=== PATIENT | male | born 1965 | race African-American/Black ===

== ENCOUNTER 2021-10-30 15:40 | Emergency (ER) | payer SELFPAY ==
[~2021-10-30] VITALS: Ht 193 cm; Wt 158.8 kg
[2021-10-30 16:16] VITALS: BP_SYST 181
--- NOTE | 2021-10-30 16:25 | NUR ---
pt. bib sister in law with draing sore to back, stated first noticed ot on friday had someone squueze it and it has been draining since, area all around red, firm, and warm
[2021-10-30] MEDS ORDERED: VANCOMYCIN HCL 1,000 MG in NS 250 ML IV ONE (17:00)
[2021-10-30] MEDS ORDERED: VANCOMYCIN HCL 1000 MG/VIAL IV ONE (17:26)
[2021-10-30] MEDS ORDERED: LIDOCAINE 1%, 20 ML MDV 20 ML ONE (17:29)
--- NOTE | 2021-10-30 17:30 | NUR ---
Patient to ER bed 8 to gown for evaluation. Side rails up. Report given to Kelli.
--- NOTE | 2021-10-30 18:53 | NUR ---
I&D Procedure done by Dr VIC alvarez using sterile technique. Lidocaine 1% used. Wound packed with IODOFORM. Adaptic, 4x4 and micky to wound. MINIMAL amt of bleeding noted. Wound care discussed w/ patient. Pt tolerated procedure well.
--- NOTE | 2021-10-30 19:33 | NUR ---
report given to Jon GIL
[2021-10-30] MEDS ORDERED: CEPH-548 PO (19:47)
[2021-10-30] MEDS ORDERED: NAPR-1172 PO (19:47)
[2021-10-30 20:14] VITALS: BP_SYST 130
--- NOTE | 2021-10-30 20:16 | NUR ---
Pt DC per MD's order ED instructions and prescription given Pt veralized understandings AOX4 VSS NAD at this time Pt exited ED in stable gait
== END 2021-10-30 20:14 | disposition home or self-care (01) ==
LOC: SED 15:40
DX: L02.212 Cutaneous abscess of back [any part, except buttock and flank] (principal); Z79.899 Other long term (current) drug therapy
CPT/HCPCS: 10060; 36415; 87040; 96365; 99284; J2001; J3370

== ENCOUNTER 2021-11-01 16:41 | Inpatient (IN) | payer SELFPAY ==
[~2021-11-01] VITALS: Ht 193 cm; Wt 158.8 kg
[~2021-11-01 16:41] MED LIST: CEPH-548 PO; NAPR-1172 PO
[2021-11-01 16:50] VITALS: BP_SYST 177
[2021-11-01] MEDS ORDERED: VANCOMYCIN HCL 1,000 MG in D5W 250 ML IV ONE (17:45)
[2021-11-01] MEDS ORDERED: KETOROLAC TROMETHAMINE 30 MG VIAL IVP ONE (17:45)
[2021-11-01] MEDS ORDERED: PIPERACILLIN/TAZO 3.38 GM in D5W 50 ML IV ONE (17:45)
[2021-11-01 18:24] LABS: BASOPHILS # (AUTO) 0.1 K/uL (0.0-0.2); HEMOGLOBIN 11.8 g/dL (14.0-18.0); MEAN CORPUSCULAR VOLUME 76 fL (79.0-98.0); RED CELL DISTRIBUTION WIDTH 16.7 % (9.0-15.0)
[2021-11-01] MEDS ORDERED: PIPERACILLIN/TAZOBACTAM 3.375 GM/VIAL (ZOSYN) IV ONE (18:27)
[2021-11-01] MEDS ORDERED: VANCOMYCIN HCL 1000 MG/VIAL IV ONE (18:28)
[2021-11-01 18:40] LABS: CREATININE 2.98 mg/dL (0.55-1.30)
[2021-11-01 18:49] LABS: POTASSIUM 2.9 mmol/L (3.5-5.1)
[2021-11-01 19:00] LABS: BASOPHILS % (AUTO) 0.4 % (0.0-2.0); EOSINOPHILS # (AUTO) 0.7 K/uL (0.0-0.4); EOSINOPHILS % (AUTO) 4.7 % (0.0-4.0); HEMATOCRIT 35.8 % (36-54); LYMPHOCYTES % (AUTO) 6.6 % (20.5-51.5); MEAN CORPUSCULAR HEMOGLOBIN 25 pg (27-31); MEAN CORPUSCULAR HGB CONC 33 % (32-36); MONOCYTES # (AUTO) 1.3 K/uL (0.0-1.0); MONOCYTES % (AUTO) 8.3 % (1.7-9.3); NEUTROPHILS # (AUTO) 12.2 K/uL (1.8-7.7); PLATELET COUNT (AUTO) 279 K/uL (130-430); RED BLOOD CELL COUNT(AUTO) 4.68 MIL/uL (4.2-6.2); WHITE BLOOD COUNT (AUTO) 15.2 K/uL (4.8-10.8)
[2021-11-01] MEDS ORDERED: NACL 0.9% 1,000 ML IV ONE (19:00)
[2021-11-01] MEDS ORDERED: D5/0.45 NS 1,000 ML IV SCH (19:45)
[2021-11-01] MEDS ORDERED: HYDROcodone/ACETAMIN 5-325 MG TAB (NORCO/ VICODIN) PO PRN (20:15)
[2021-11-01] MEDS ORDERED: HYDROcodone/ACETAMIN 10-325 MG TAB PO PRN (20:15)
[2021-11-01] MEDS ORDERED: ACETAMINOPHEN 325 MG TABLET PO PRN (20:15)
[2021-11-01] MEDS ORDERED: LORazepam 2 MG/ML VIAL IVP PRN (20:15)
[2021-11-01] MEDS ORDERED: INSULIN REGULAR, HUMAN 100 UNITS/ML, 10 ML VIAL (humuLIN R) SUBCUT PRN (20:15)
[2021-11-01] MEDS ORDERED: ONDANSETRON HCL 4 MG/2 ML VIAL IVP PRN (20:15)
[2021-11-01 21:44] VITALS: BP_SYST 177
[2021-11-02] MEDS ORDERED: PIPERACILLIN/TAZO 3.375 GM in NS 50 ML IV ONE ×2
== END 2021-11-01 21:44 | disposition left against medical advice (07) | DRG 603 ==
LOC: SED 16:41 → SMU 19:35
PROVIDERS: ADMIT Preventive Medicine Preventive Medicine/Occupational Environmental Medicine; ATTEND Preventive Medicine Preventive Medicine/Occupational Environmental Medicine
DX: L02.212 Cutaneous abscess of back [any part, except buttock and flank] (principal); N17.9 Acute kidney failure, unspecified; E11.9 Type 2 diabetes mellitus without complications; Z53.29 Procedure and treatment not carried out because of patient's decision for other reasons
CPT/HCPCS: 36415; 80048; 85025; J1815; J1885; J2543; J3370

== ENCOUNTER 2021-11-04 08:55 | Emergency (ER) | payer SELFPAY ==
[~2021-11-04] VITALS: Ht 193 cm; Wt 158.8 kg
[2021-11-04 08:55] VITALS: BP_SYST 208
--- NOTE | 2021-11-04 08:55 | NUR ---
Patient to ER bed 7 to gown for evaluation. Report given to Shayla.
--- NOTE | 2021-11-04 08:58 | NUR ---
ER at bedside examining patient, dressing removed, pressure applied to wound to assist with drainage
--- NOTE | 2021-11-04 10:28 | NUR ---
lab collected, wound pack completed copious serous drainage.
[2021-11-04 10:39] LABS: BASOPHILS # (AUTO) 0.1 K/uL (0.0-0.2); EOSINOPHILS # (AUTO) 0.5 K/uL (0.0-0.4); EOSINOPHILS % (AUTO) 5.3 % (0.0-4.0); HEMATOCRIT 34.7 % (36-54); HEMOGLOBIN 11.5 g/dL (14.0-18.0); LYMPHOCYTES # (AUTO) 1.1 K/uL (1.0-5.5); MEAN CORPUSCULAR HEMOGLOBIN 25 pg (27-31); MEAN CORPUSCULAR HGB CONC 33 % (32-36); MEAN CORPUSCULAR VOLUME 77 fL (79.0-98.0); MONOCYTES # (AUTO) 0.8 K/uL (0.0-1.0); MONOCYTES % (AUTO) 7.8 % (1.7-9.3); NEUTROPHILS # (AUTO) 7.8 K/uL (1.8-7.7); NEUTROPHILS % (AUTO) 74.9 % (40.0-70.0); PLATELET COUNT (AUTO) 256 K/uL (130-430); RED BLOOD CELL COUNT(AUTO) 4.52 MIL/uL (4.2-6.2); RED CELL DISTRIBUTION WIDTH 17.2 % (9.0-15.0); WHITE BLOOD COUNT (AUTO) 10.4 K/uL (4.8-10.8)
[2021-11-04 11:11] LABS: CALCIUM 7.8 mg/dL (8.4-11.0); CREATININE 2.11 mg/dL (0.55-1.30); POTASSIUM 3.2 mmol/L (3.5-5.1)
[2021-11-04 11:22] LABS: ALBUMIN 2.1 g/dL (3.4-4.8); TOTAL BILIRUBIN 0.5 mg/dL (0.0-1.0)
[2021-11-04 11:32] LABS: C-REACTIVE PROTEIN QUANT 12.7 mg/dL (0-0.5)
[2021-11-04] MEDS ORDERED: CLIN-142 PO (11:50)
[2021-11-04 12:25] VITALS: BP_SYST 198
--- NOTE | 2021-11-04 12:25 | NUR ---
Patient given written and verbal discharge instructions and verbalizes understanding. ER Dr. Reyes discussed with patient the results and treatment provided. Patient in stable condition. ID arm band removed. Rx of clindamycin given. Patient educated on pain management and to follow up with PMD. Pain Scale 0. Opportunity for questions provided and answered. Medication side effect fact sheet provided.
== END 2021-11-04 12:25 | disposition home or self-care (01) ==
LOC: SED 08:55
DX: L02.212 Cutaneous abscess of back [any part, except buttock and flank] (principal); Z79.899 Other long term (current) drug therapy
CPT/HCPCS: 36415; 80053; 83605; 85025; 86140; 99283

== ENCOUNTER 2021-11-06 12:25 | Emergency (ER) | payer SELFPAY ==
[~2021-11-06] VITALS: Ht 193 cm; Wt 158.8 kg
[~2021-11-06 12:25] MED LIST changes: +CLIN-142 PO
[2021-11-06 12:38] VITALS: BP_SYST 185
[2021-11-06 16:40] VITALS: BP_SYST 175
== END 2021-11-06 17:06 | disposition home or self-care (01) ==
LOC: SED 12:25
DX: Z48.00 Encounter for change or removal of nonsurgical wound dressing (principal); E11.9 Type 2 diabetes mellitus without complications; Z79.899 Other long term (current) drug therapy
CPT/HCPCS: 82962; 99283